=== PATIENT | male | born 1995 | race Caucasian/White ===

== ENCOUNTER 2019-08-06 12:16 | Emergency (ER) | payer SELFPAY ==
[2019-08-06] MEDS ORDERED: methylPREDNISolone Sodium Succinate 125 MG/2 ML SDV IM ONE (12:34)
[2019-08-06] MEDS ORDERED: diphenhydrAMINE 50 MG Cap PO ONE (12:38)
--- NOTE | 2019-08-06 12:38 | EDM.PDOC ---
ED HPI GENERAL MEDICAL PROBLEM - General Chief Complaint: ENT Problem Stated Complaint: n Time Seen by Provider: 08/06/19 12:25 Source of Information: Reports: Patient History Limitations: Reports: No Limitations - History of Present Illness INITIAL COMMENTS - FREE TEXT/NARRATIVE: HISTORY AND PHYSICAL: History of present illness: Patient is a 24-year-old male who presents to the emergency room with complaints of a dry scratchy throat and feeling like his uvula is swollen. He states that he has noticed the symptoms over the past 1 to 2 days and has been taking some NyQuil cold. States the medication has helped somewhat but concerned of the swelling and elongation of his uvula. He states this has happened before and typically goes away within a few days. 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 His significant other states he has really bad snoring and believes he has sleep apnea although he is never had a sleep study done. He denies any food or drug allergies. He does not take any medications and other than the NyQuil Cold has not taken any [id number] products. Review of systems: As per history of present illness and below otherwise all systems reviewed and negative. Past medical history: As per history of present illness and as reviewed below otherwise noncontributory. Surgical history: As per history of present illness and as reviewed below otherwise noncontributory. Social history: See social history for further information Family history: As per history of present illness and as reviewed below otherwise noncontributory. Physical exam: General: Well-developed and well-nourished 24-year-old male. Alert and oriented. Nontoxic-appearing and in no acute distress. HEENT: Atraumatic, normocephalic, pupils equal and reactive bilaterally, negative for conjunctival pallor or scleral icterus, mucous membranes moist, TMs normal bilaterally, throat erythematous with out soft tissue swelling or exudate, elongated uvula (no swelling noted) and is not obstructing the airway. His neck is supple, nontender, trachea midline. No drooling or trismus noted. No meningeal signs. No hot potato voice noted. Lungs: Clear to auscultation, breath sounds equal bilaterally, chest nontender. Heart: S1S2, regular rate and rhythm without overt murmur Abdomen: Soft, nondistended, nontender. Negative for masses or hepatosplenomegaly. Negative for costovertebral tenderness. Pelvis: Stable nontender. Skin: Intact, warm, dry. No lesions or rashes noted. Extremities: Atraumatic, moves all extremities per self without difficulty or deficits, negative for cords or calf pain. Neurovascular unremarkable. Neuro: Awake, alert, oriented. Cranial nerves II through XII unremarkable. Cerebellum unremarkable. Motor and sensory unremarkable throughout. Exam nonfocal. Notes: Negative strep screening. VSS. We discussed the need for follow-up with ear nose and throat if he continues to have this intermittent sensation of swelling of his uvula. Currently it is nonobstructing and will place him on a steroid pack. I also encouraged him to follow-up with primary care as he should have a sleep study done based on what he and his significant other telling me with his snoring and apnea. Supportive care measures were reviewed and discussed. Voices understanding and is agreeable to plan of care. Denies any further questions or concerns at this time. Diagnostics: Strep Therapeutics: Solu-Medrol IM, Benadryl Prescription: Medrol Dosepak Impression: Uvulitis Plan: 1. Take your medication as directed. Drink LOTS of fluids. 2. Warm Salt water gargles (rinse and spit) 3-4 x daily. 3. Tylenol and or ibuprofen as needed for pain management. Take benadryl routine over the next 2 days. 4. Follow-up with your primary care provider for re-evaluation. Would also like you to discuss sleep study for assessment of Sleep Apnea. Return to the ED as needed and as discussed. Definitive disposition and diagnosis as appropriate pending reevaluation and review of above. uvula Pain Score (Numeric/FACES): 3 - Related Data Allergies Allergy/AdvReac Type Severity Reaction Status Date / Time No Known Allergies Allergy Verified 08/06/19 12:25 Home Meds: Home Meds methylPREDNISolone [Medrol] 1 dose PO DAILY 6 Days #1 dospk 08/06/19 [Rx] Past Medical History - Past Health History Medical/Surgical History: Denies Medical/Surgical History Social & Family History - Family History Family Medical History: Noncontributory - Tobacco Use Smoking Status *Q: Current Every Day Smoker Years of Tobacco use: 8 Packs/Tins Daily: 0.5 - Recreational Drug Use Recreational Drug Use: No ED ROS ENT - Review of Systems Review Of Systems: Comprehensive ROS is negative, except as noted in HPI. ED EXAM, ENT - Physical Exam Exam: See Below (See dictation) Course - Vital Signs Last Recorded V/S: Last Vital Signs Temp 97.3 F 08/06/19 12:23 Pulse 87 08/06/19 12:23 Resp 18 08/06/19 12:23 BP 147/79 H 08/06/19 12:23 Pulse Ox 95 08/06/19 12:23 - Orders/Labs/Meds Orders: Active Orders 24 hr Category Date Time Status CULTURE STREP A CONFIRMATION [RM] Stat Lab 08/06/19 12:50 Results STREP SCRN A RAPID W CULT CONF [RM] Stat Lab 08/06/19 12:50 Received Meds: Medications Discontinued Medications Generic Name Dose Route Start Last Admin Trade Name Gallo PRN Reason Stop Dose Admin Diphenhydramine HCl 50 mg 08/06/19 12:38 08/06/19 12:50 Benadryl PO 08/06/19 12:39 50 mg ONETIME ONE Administration Methylprednisolone Sodium Succinate 125 mg 08/06/19 12:34 08/06/19 12:50 Solu-Medrol IM 08/06/19 12:35 125 mg ONETIME ONE Administration Departure - Departure Time of Disposition: 13:19 Disposition: Home, Self-Care 01 Clinical Impression: Uvulitis - Discharge Information Prescriptions: methylPREDNISolone [Medrol] 1 dose PO DAILY 6 Days #1 dospk Instructions: Uvulitis Referrals: PCP,None [Primary Care Provider] - Forms: ED Department Discharge Additional Instructions: The following information is given to patients seen in the emergency department who are being discharged to home. This information is to outline your options for follow-up care. We provide all patients seen in our emergency department with a follow-up referral. The need for follow-up, as well as the timing and circumstances, are variable depending upon the specifics of your emergency department visit. If you don't have a primary care physician on staff, we will provide you with a referral. We always advise you to contact your personal physician following an emergency department visit to inform them of the circumstance of the visit and for follow-up with them and/or the need for any referrals to a consulting specialist. The emergency department will also refer you to a specialist when appropriate. This referral assures that you have the opportunity for follow-up care with a specialist. All of these measure are taken in an effort to provide you with optimal care, which includes your follow-up. Under all circumstances we always encourage you to contact your private physician who remains a resource for coordinating your care. When calling for follow-up care, please make the office aware that this follow-up is from your recent emergency room visit. If for any reason you are refused follow-up, please contact the [facility] Emergency Department at and asked to speak to the emergency department charge nurse. [facility] [address] [place] [address] [facility] [address] [place] [id number] 1. Take your medication as directed. Drink LOTS of fluids. 2. Warm Salt water gargles (rinse and spit) 3-4 x daily. 3. Tylenol and or ibuprofen as needed for pain management. Take benadryl routine over the next 2 days. 4. Follow-up with your primary care provider for re-evaluation. Would also like you to discuss sleep study for assessment of Sleep Apnea. Return to the ED as needed and as discussed. Sepsis Event Note - Evaluation Sepsis Screening Result: No Definite Risk - Focused Exam Vital Signs: Vital Signs Temp Pulse Resp BP Pulse Ox 08/06/19 12:23 97.3 F 87 18 147/79 H 95 Date Exam was Performed: 08/06/19 Time Exam was Performed: 13:20 - My Orders Last 24 Hours: My Active Orders 08/06/19 12:50 CULTURE STREP A CONFIRMATION [RM] Stat STREP SCRN A RAPID W CULT CONF [RM] Stat - Assessment/Plan Last 24 Hours: My Active Orders 08/06/19 12:50 CULTURE STREP A CONFIRMATION [RM] Stat STREP SCRN A RAPID W CULT CONF [RM] Stat
== END 2019-08-06 13:29 | disposition home or self-care (01) ==
LOC: MW.ED 12:16
DX: K12.2 Cellulitis and abscess of mouth (principal); F17.210 Nicotine dependence, cigarettes, uncomplicated; Z79.899 Other long term (current) drug therapy
CPT/HCPCS: 87081; 87880; 96372; 99283; A9270; J2930

== ENCOUNTER 2022-04-19 21:37 | Emergency (ER) | payer OTHER ==
[2022-04-19] MEDS ORDERED: Ibuprofen 600 MG Tab PO ONE (21:46)
[2022-04-19] MEDS ORDERED: Cyclobenzaprine 10 MG Tab PO ONE (21:46)
[2022-04-19] MEDS ORDERED: Acetaminophen 500 MG Tab PO ONE (22:16)
== END 2022-04-19 22:59 | disposition home or self-care (01) ==
LOC: MW.ED 21:37
DX: M54.2 Cervicalgia (principal); R51.9 Headache, unspecified; M79.641 Pain in right hand; M25.531 Pain in right wrist; M54.50 Low back pain, unspecified; M54.6 Pain in thoracic spine; V89.2XXA Person injured in unspecified motor-vehicle accident, traffic, initial encounter; Y92.410 Unspecified street and highway as the place of occurrence of the external cause
CPT/HCPCS: 71045; 72125; 99284; A9270